=== PATIENT | female | born 1985 | race Caucasian/White ===

== ENCOUNTER 2019-10-02 07:32 | Day surgery (SDC) | payer OTHER ==
[~2019-10-02] VITALS: Ht 160 cm; Wt 64.1 kg
[2019-10-02 07:55] VITALS: BP 102/72; PULSE 72; TEMP 97.7
[2019-10-02] MEDS ORDERED: TRULANCE3 MG PO (08:05)
--- NOTE | 2019-10-02 08:05 | NUR ---
TO [facility] AT 0735- CALL LIGHT IN REACH FRIEND CHETAN AT BEDSIDE.
[2019-10-02] MEDS ORDERED: MIRALAX PA17 GM/Dose PO (08:59)
[2019-10-02 09:15] VITALS: BP 106/72; PULSE 75; TEMP 97.9
--- NOTE | 2019-10-02 09:15 | NUR ---
Patient arrives to [facility] via cart, accompanied by [facility] RN Desiree Perkins. She is asleep. She wakes easily to voice. She ambulates with 1:1 assist to the chair in her room. Her friend is at the bedside. Monitoring is applied - VSS and WNL on room air. She denies pain or nausea. She is given a warm blanket, the chair is reclined, and lights are dimmed for comfort. Call light in reach. Will continue to monitor.
[2019-10-02 09:30] VITALS: BP 97/67; PULSE 73
--- NOTE | 2019-10-02 09:30 | NUR ---
VSS on room air. Patient is more awake. She requests and receives juice and a muffin.
[2019-10-02 09:45] VITALS: BP 98/62; PULSE 81
--- NOTE | 2019-10-02 09:49 | NUR ---
Dr. Vega is at the bedside and speaks with the patient and her friend at this time.
[2019-10-02 10:00] VITALS: BP 92/64; PULSE 60
--- NOTE | 2019-10-02 10:00 | NUR ---
Patient is more awake. She has eaten her muffin and drank her juice. Denies pain or nausea. States "I'm awake, I'm ready to go". Will continue to monitor.
[2019-10-02 10:15] VITALS: BP 92/67; PULSE 72
--- NOTE | 2019-10-02 10:27 | NUR ---
Patient has met discharge criteria. Discharge instructions are discussed. She denies questions and verbalizes understanding. She is aware of her follow-up appointment and her prescription to chart picker at her preferred pharmacy. PIV is removed with catheter intact and hemostasis achieved. She uses the restroom and changes to her clothing independently.
--- NOTE | 2019-10-02 10:35 | NUR ---
Patient is escorted to the exit via wheelchair. She is discharged to home with ride in private vehicle at 1035.
== END 2019-10-02 10:35 | disposition home or self-care (01) ==
LOC: SDCO 07:32
DX: K59.8 Other specified functional intestinal disorders (principal); K64.0 First degree hemorrhoids; K59.00 Constipation, unspecified; Z90.710 Acquired absence of both cervix and uterus; Z90.722 Acquired absence of ovaries, bilateral; Z80.0 Family history of malignant neoplasm of digestive organs
CPT/HCPCS: J2250; J3010; J7030